=== PATIENT | male | born 1990 | race Two or more races ===

== ENCOUNTER 2017-03-31 17:55 | Emergency (ER) | payer MEDICAID, OTHER ==
[~2017-03-31] VITALS: Ht 170.2 cm; Wt 75.3 kg
[2017-03-31] MEDS ORDERED: HYDROcodone-ACET 10/325MG TAB PO ONE (22:00)
[2017-04-01] MEDS ORDERED: PIPERACILLIN-TAZOB 3.375GM 100 ML IV ONE ×2 (01:15)
[2017-04-01] MEDS ORDERED: ACETAMINOPHEN 325 MG TAB PO ONE ×2 (01:35→01:45)
[2017-04-01 01:40] VITALS: BP 125/79
== END 2017-04-01 02:27 | disposition short-term general hospital (02) ==
LOC: ER 18:00
DX: S10.95XA Superficial foreign body of unspecified part of neck, initial encounter (principal); L03.221 Cellulitis of neck; F17.210 Nicotine dependence, cigarettes, uncomplicated; V49.9XXA Car occupant (driver) (passenger) injured in unspecified traffic accident, initial encounter; Y93.89 Activity, other specified; Y92.89 Other specified places as the place of occurrence of the external cause; Y99.8 Other external cause status
CPT/HCPCS: 71250; 72125; 73030; 87040; 94761; 96365; 99285; J2543

== ENCOUNTER 2017-04-20 16:35 | Inpatient (IN) | payer MEDICAID ==
[~2017-04-20] VITALS: Ht 170.2 cm; Wt 74.3 kg
[2017-04-20 19:52] LABS: Basophils # (auto) 0 uL; Basophils % (auto) 0.3 % (0.0-2.0); Eosinophils # (auto) 0.3 uL; Eosinophils % (auto) 3.1 % (0.0-7.0); Hemoglobin 13.2 g/dL (13.5-17.5); Lymphocytes # (auto) 2.2 uL; Lymphocytes % (auto) 22.4 % (10.0-50.0); Mean Corpuscular Hemoglobin 30.3 pg (28.0-32.0); Mean Corpuscular Hgb Conc. 33.8 g/dL (32.0-36.0); Mean Corpuscular Volume 89.7 fL (80.0-100.0); Mean Platelet Volume 8.8 fL (7.4-10.4); Monocytes # (auto) 0.8 uL; Monocytes % (auto) 7.9 % (0.0-12.0); Neutrophils # (auto) 6.4 uL; Neutrophils % (auto) 66.3 % (37.0-80.0); Platelet Count (auto) 364 10^3/uL (140-450); Red Cell Distribution Width 13.5 % (11.6-16.0); White Blood Cell 9.7 10^3/uL (4.4-10.8)
[2017-04-20 20:12] LABS: Albumin 3.7 g/dL (3.4-5.0); BUN/Creatinine Ratio 28.6; Bilirubin, Total 0.3 mg/dL (0.2-1.0); Calcium 8.9 mg/dL (8.5-10.1); Potassium 4.1 mmol/L (3.5-5.1); Total Protein 8.5 g/dL (6.4-8.2)
[2017-04-20] MEDS ORDERED: ONDANSETRON HCL 4 MG/2 ML VIAL IV PRN (22:45)
[2017-04-20] MEDS ORDERED: NITROGLYCERIN 0.4 MG SL TAB SL PRN (22:45)
[2017-04-20] MEDS ORDERED: ACETAMINOPHEN 325 MG TAB PO PRN (22:45)
[2017-04-20] MEDS ORDERED: DOCUSATE SOD 100 MG CAP PO PRN (22:45)
[2017-04-20] MEDS ORDERED: MORPHINE SULF INJ 2 MG/ML SYRINGE 1ML IV PRN (22:45)
[2017-04-20] MEDS: SODIUM CHLORIDE 0.9% 1,000 ML IV SCH (23:07)
[2017-04-20 23:17] VITALS: BP 113/56
[2017-04-20] MEDS ORDERED: GABA-339 PO (23:54)
[2017-04-20] MEDS ORDERED: IBUP800T24 PO (23:54)
[2017-04-20] MEDS ORDERED: HYDR-4663 PO (23:54)
[2017-04-21] VITALS (7 sets, daily range): BP systolic 104–125; BP diastolic 53–69
[2017-04-21] MEDS: SODIUM CHLOR 0.9% PF (SALINE LOCK) 10ML VIAL IV SCH ×3 (05:31→21:36)
[2017-04-21] MEDS: MORPHINE SULF INJ 2 MG/ML SYRINGE 1ML IV PRN ×3 (05:56→21:36)
[2017-04-21 06:22] LABS: Basophils # (auto) 0 uL; Basophils % (auto) 0.5 % (0.0-2.0); Eosinophils # (auto) 0.4 uL; Eosinophils % (auto) 4.5 % (0.0-7.0); Hematocrit 38.2 % (41.0-53.0); Hemoglobin 12.9 g/dL (13.5-17.5); Lymphocytes % (auto) 24.4 % (10.0-50.0); Mean Corpuscular Hgb Conc. 33.7 g/dL (32.0-36.0); Mean Corpuscular Volume 89.1 fL (80.0-100.0); Mean Platelet Volume 8.4 fL (7.4-10.4); Monocytes # (auto) 0.8 uL; Monocytes % (auto) 9.9 % (0.0-12.0); Neutrophils # (auto) 5.1 uL; Neutrophils % (auto) 60.7 % (37.0-80.0); Platelet Count (auto) 362 10^3/uL (140-450); Red Cell Distribution Width 13.3 % (11.6-16.0); White Blood Cell 8.3 10^3/uL (4.4-10.8)
[2017-04-21 06:43] LABS: Albumin 3.4 g/dL (3.4-5.0); BUN/Creatinine Ratio 23.4; Bilirubin, Total 0.5 mg/dL (0.2-1.0); Calcium 8.9 mg/dL (8.5-10.1); Potassium 4.3 mmol/L (3.5-5.1); Total Protein 8.1 g/dL (6.4-8.2)
[2017-04-21] MEDS: FAMOTIDINE 20 MG TAB PO SCH ×2 (09:41→21:36)
[2017-04-21] MEDS ORDERED: cefTRIAXone 1GM/50ML D5W 50 ML IV SCH (10:00)
[2017-04-21] MEDS ORDERED: MULTIPLE VITAMIN TAB PO SCH (10:00)
[2017-04-21] MEDS: VANCOMYCIN 1GM/250ML D5W 250 ML IV SCH (11:24)
[2017-04-21] MEDS ORDERED: ceFAZolin 1GM/50ML D5W 50 ML IV ONE (15:15)
[2017-04-21] MEDS: SODIUM CHLORIDE 0.9% 1,000 ML IV SCH (15:29)
[2017-04-21] MEDS: ceFAZolin 1GM/50ML D5W 50 ML IV SCH (21:36)
[2017-04-22] VITALS (7 sets, daily range): BP systolic 109–127; BP diastolic 59–69
[2017-04-22] MEDS: ceFAZolin 1GM/50ML D5W 50 ML IV SCH ×3 (05:36→22:03)
[2017-04-22] MEDS: SODIUM CHLOR 0.9% PF (SALINE LOCK) 10ML VIAL IV SCH ×3 (05:36→22:03)
[2017-04-22 06:35] LABS: Basophils # (auto) 0 uL; Basophils % (auto) 0.2 % (0.0-2.0); Eosinophils # (auto) 0.3 uL; Eosinophils % (auto) 3.5 % (0.0-7.0); Hematocrit 37.1 % (41.0-53.0); Hemoglobin 12.6 g/dL (13.5-17.5); Lymphocytes # (auto) 1.4 uL; Lymphocytes % (auto) 15.7 % (10.0-50.0); Mean Corpuscular Hemoglobin 30.2 pg (28.0-32.0); Mean Corpuscular Hgb Conc. 33.9 g/dL (32.0-36.0); Mean Corpuscular Volume 89.2 fL (80.0-100.0); Mean Platelet Volume 8.9 fL (7.4-10.4); Monocytes # (auto) 0.8 uL; Monocytes % (auto) 9.5 % (0.0-12.0); Neutrophils # (auto) 6.2 uL; Neutrophils % (auto) 71.1 % (37.0-80.0); Platelet Count (auto) 326 10^3/uL (140-450); Red Cell Distribution Width 13.1 % (11.6-16.0); White Blood Cell 8.7 10^3/uL (4.4-10.8)
[2017-04-22 06:50] LABS: Partial Thromboplastin Time 33.7 sec (22.64-33.71); Prothrombin Time 10.9 sec (9.37-12.3)
[2017-04-22] MEDS: MORPHINE SULF INJ 2 MG/ML SYRINGE 1ML IV PRN (06:50)
[2017-04-22] MEDS: SODIUM CHLORIDE 0.9% 1,000 ML IV SCH (07:51)
[2017-04-22] MEDS: FAMOTIDINE 20 MG TAB PO SCH ×2 (10:25→22:03)
[2017-04-22] MEDS: VANCOMYCIN 1GM/250ML D5W 250 ML IV SCH (10:26)
[2017-04-22] MEDS: HYDROcodone-ACET 5/325MG TAB PO PRN (14:44)
[2017-04-23] VITALS (7 sets, daily range): BP systolic 103–129; BP diastolic 58–73
[2017-04-23] MEDS: SODIUM CHLORIDE 0.9% 1,000 ML IV SCH ×2 (05:00→17:11)
[2017-04-23] MEDS: SODIUM CHLOR 0.9% PF (SALINE LOCK) 10ML VIAL IV SCH ×3 (06:04→22:20)
[2017-04-23] MEDS: ceFAZolin 1GM/50ML D5W 50 ML IV SCH ×3 (06:04→22:20)
[2017-04-23] MEDS: HYDROcodone-ACET 5/325MG TAB PO PRN ×2 (07:04→23:51)
[2017-04-23] MEDS: FAMOTIDINE 20 MG TAB PO SCH ×2 (09:50→22:21)
[2017-04-23] MEDS: VANCOMYCIN 1GM/250ML D5W 250 ML IV SCH (09:50)
[2017-04-24 05:04] VITALS: BP 96/64
[2017-04-24] MEDS: ceFAZolin 1GM/50ML D5W 50 ML IV SCH ×3 (05:32→21:36)
[2017-04-24] MEDS: SODIUM CHLOR 0.9% PF (SALINE LOCK) 10ML VIAL IV SCH ×3 (05:32→21:36)
[2017-04-24 09:00] VITALS: BP 101/53
[2017-04-24] MEDS: SODIUM CHLORIDE 0.9% 1,000 ML IV SCH (09:51)
[2017-04-24] MEDS: FAMOTIDINE 20 MG TAB PO SCH ×2 (10:29→21:35)
[2017-04-24] MEDS: VANCOMYCIN 1GM/250ML D5W 250 ML IV SCH (10:29)
[2017-04-24 13:00] VITALS: BP 104/70
[2017-04-24 14:28] LABS: Urine Bilirubin Negative (Negative); Urine Blood Negative /uL (Negative); Urine Color Yellow (Yellow); Urine Glucose Normal (Normal); Urine Ketone Negative (Negative); Urine Nitrite Negative (Negative); Urine RBC 1 /hpf (0 - 3); Urine Squamous Epithelial Cell FEW /hpf (<5); Urine Urobilinogen Normal (Negative); Urine pH 6.5 (5.0-8.0)
[2017-04-24 17:00] VITALS: BP 109/57
[2017-04-24 20:25] VITALS: BP 101/53
[2017-04-24 21:30] VITALS: BP 106/62
[2017-04-25] MEDS: MORPHINE SULF INJ 2 MG/ML SYRINGE 1ML IV PRN (04:10)
[2017-04-25] MEDS: SODIUM CHLORIDE 0.9% 1,000 ML IV SCH ×2 (04:44→19:11)
[2017-04-25 05:00] VITALS: BP 95/42
[2017-04-25] MEDS: ceFAZolin 1GM/50ML D5W 50 ML IV SCH ×3 (05:24→22:00)
[2017-04-25] MEDS: SODIUM CHLOR 0.9% PF (SALINE LOCK) 10ML VIAL IV SCH ×2 (06:08→14:13)
[2017-04-25] MEDS ORDERED: PROPOFOL 10 MG/ML 100ML BOTTLE IV ONE (08:00)
[2017-04-25 08:30] VITALS: BP 101/68
[2017-04-25] MEDS: FAMOTIDINE 20 MG TAB PO SCH ×2 (10:00→21:03)
[2017-04-25] MEDS ORDERED: LORazepam 2MG/ML-1ML VIAL IV ONE (10:30)
[2017-04-25] MEDS ORDERED: fentaNYL CITRATE 100 MCG/2 ML VL ONE ×2 (10:36→10:58)
[2017-04-25] MEDS ORDERED: MIDAZOLAM HCL 1MG/1ML-2 ML VIAL ONE (10:36)
[2017-04-25] MEDS ORDERED: KETOROLAC TROMETH 60MG/2ML VIAL IM ONE (10:37)
[2017-04-25] MEDS ORDERED: GLYCOPYRROLATE 0.2 MG/ML 1ML VIAL ONE (10:37)
[2017-04-25] MEDS ORDERED: DEXAMETHASONE SOD PHOS 10MG/1ML VIAL INJ ONE (10:37)
[2017-04-25] MEDS ORDERED: ONDANSETRON HCL 4 MG/2 ML VIAL ONE (10:37)
[2017-04-25] MEDS ORDERED: LIDOCAINE W/ EPINEPHRINE 1 % INJ 30ML ONE (10:59)
[2017-04-25] MEDS ORDERED: LIDOCAINE W/ EPINEPHRINE 1 % INJ 30ML IJ ONE (10:59)
[2017-04-25] MEDS ORDERED: ONDANSETRON HCL 4 MG/2 ML VIAL IV ONE (12:45)
[2017-04-25] MEDS ORDERED: HYDROmorphone HCL 2 MG/ML VL IV PRN (12:45)
[2017-04-25 14:25] VITALS: BP 103/54
[2017-04-25 17:30] VITALS: BP 101/52
[2017-04-25] MEDS: HYDROcodone-ACET 5/325MG TAB PO PRN (21:02)
[2017-04-25] MEDS: TEMAZEPAM 15 MG CAP PO PRN (21:02)
[2017-04-25 21:45] VITALS: BP 112/60
[2017-04-26] MEDS: SODIUM CHLOR 0.9% PF (SALINE LOCK) 10ML VIAL IV SCH ×4 (05:26→21:25)
[2017-04-26] MEDS: HYDROcodone-ACET 5/325MG TAB PO PRN ×3 (05:27→21:11)
[2017-04-26] MEDS: ceFAZolin 1GM/50ML D5W 50 ML IV SCH ×4 (05:27→21:26)
[2017-04-26 05:54] VITALS: BP 91/45
[2017-04-26 06:01] LABS: Basophils # (auto) 0.1 uL; Basophils % (auto) 0.6 % (0.0-2.0); Eosinophils # (auto) 0.1 uL; Eosinophils % (auto) 1.2 % (0.0-7.0); Hematocrit 37.9 % (41.0-53.0); Hemoglobin 12.8 g/dL (13.5-17.5); Lymphocytes # (auto) 2.3 uL; Lymphocytes % (auto) 18.9 % (10.0-50.0); Mean Corpuscular Hgb Conc. 33.7 g/dL (32.0-36.0); Monocytes # (auto) 0.9 uL; Monocytes % (auto) 7.2 % (0.0-12.0); Neutrophils # (auto) 8.6 uL; Neutrophils % (auto) 72.1 % (37.0-80.0); Platelet Count (auto) 388 10^3/uL (140-450); Red Cell Distribution Width 13.3 % (11.6-16.0)
[2017-04-26] MEDS: FAMOTIDINE 20 MG TAB PO SCH ×2 (11:56→21:26)
[2017-04-26] MEDS: MORPHINE SULF INJ 2 MG/ML SYRINGE 1ML IV PRN (11:58)
[2017-04-26 13:00] VITALS: BP 102/59
[2017-04-26 17:00] VITALS: BP_SYST 105; BP_SYST 123; BP_DIAS 66
[2017-04-26 20:00] VITALS: BP 110/67
[2017-04-26] MEDS: TEMAZEPAM 15 MG CAP PO PRN (21:27)
[2017-04-26 22:00] VITALS: BP 110/67
[2017-04-27 05:00] VITALS: BP 104/59
[2017-04-27] MEDS: ceFAZolin 1GM/50ML D5W 50 ML IV SCH ×2 (05:44→14:00)
[2017-04-27] MEDS: SODIUM CHLOR 0.9% PF (SALINE LOCK) 10ML VIAL IV SCH ×2 (05:44→14:00)
[2017-04-27 08:00] VITALS: BP 111/60
[2017-04-27] MEDS: HYDROcodone-ACET 5/325MG TAB PO PRN (08:21)
[2017-04-27 09:00] VITALS: BP 111/60
[2017-04-27 13:00] VITALS: BP 106/64
[2017-04-27 14:05] VITALS: BP 111/60
[2017-04-27] MEDS: FAMOTIDINE 20 MG TAB PO SCH (14:09)
== END 2017-04-27 15:30 | disposition home or self-care (01) | DRG 383 ==
LOC: ER 16:51 → OVERFLOW 16:52 → CENTRAL 23:30
PROVIDERS: ADMIT Emergency Medicine; ATTEND Internal Medicine
PROC: 0XJ20ZZ Inspection of Right Shoulder Region, Open Approach (ICD-10-PCS; principal; 2017-04-25 10:40)
DX: L03.113 Cellulitis of right upper limb (principal); F17.210 Nicotine dependence, cigarettes, uncomplicated; M60.9 Myositis, unspecified; Z82.49 Family history of ischemic heart disease and other diseases of the circulatory system; M79.5 Residual foreign body in soft tissue; L08.89 Other specified local infections of the skin and subcutaneous tissue
CPT/HCPCS: 36415; 71010; 73030; 73219; 76000; 80053; 81001; 85025; 85610; 85730; 86850; 86900; 86901; 87040; 87081; 93005; J0690; J0696; J1100; J1885; J2250; J2405; J2704

== ENCOUNTER 2017-05-17 06:41 | Emergency (ER) | payer MEDICAID ==
[~2017-05-17] VITALS: Ht 170.2 cm; Wt 81.6 kg
[~2017-05-17 06:41] MED LIST: GABA-339 PO; HYDR-4663 PO; IBUP800T24 PO
[2017-05-17] MEDS ORDERED: SODIUM CHLORIDE 0.9% 1,000 ML IV ONE (09:53)
[2017-05-17] MEDS ORDERED: METOCLOPRAMIDE HCL 5MG/ml INJ 2ml VIAL IV ONE (10:00)
[2017-05-17] MEDS ORDERED: cefTRIAXone 1GM/50ML D5W 50 ML IV ONE (10:00)
[2017-05-17] MEDS ORDERED: NALBUPHINE HCL 10 MG/1ml INJECTION IV ONE (10:00)
[2017-05-17 11:11] LABS: Basophils # (auto) 0 uL; Basophils % (auto) 0.3 % (0.0-2.0); CONDITION Y; Eosinophils # (auto) 0.3 uL; Eosinophils % (auto) 6.5 % (0.0-7.0); Hematocrit 42.2 % (41.0-53.0); Hemoglobin 13.9 g/dL (13.5-17.5); Lymphocytes # (auto) 1.8 uL; Lymphocytes % (auto) 35.4 % (10.0-50.0); Mean Corpuscular Hemoglobin 29.2 pg (28.0-32.0); Mean Corpuscular Volume 88.7 fL (80.0-100.0); Mean Platelet Volume 8.9 fL (7.4-10.4); Monocytes # (auto) 0.4 uL; Monocytes % (auto) 8.5 % (0.0-12.0); Neutrophils # (auto) 2.6 uL; Neutrophils % (auto) 49.3 % (37.0-80.0); Platelet Count (auto) 256 10^3/uL (140-450); Red Cell Distribution Width 13.8 % (11.6-16.0); White Blood Cell 5.2 10^3/uL (4.4-10.8)
[2017-05-17 11:36] LABS: BUN/Creatinine Ratio 25.6; Calcium 8.5 mg/dL (8.5-10.1); Potassium 4.1 mmol/L (3.5-5.1)
[2017-05-17 14:12] VITALS: BP 104/58
== END 2017-05-17 15:30 | disposition left against medical advice (07) ==
LOC: ER 06:41
DX: L03.113 Cellulitis of right upper limb (principal); Z48.01 Encounter for change or removal of surgical wound dressing; M79.5 Residual foreign body in soft tissue; F17.210 Nicotine dependence, cigarettes, uncomplicated; Z53.29 Procedure and treatment not carried out because of patient's decision for other reasons
CPT/HCPCS: 36415; 71020; 73200; 80048; 85025; 96365; 96375; 99285; J0696; J2300; J2765; J7030